=== PATIENT | female | born 1980 | race Caucasian/White ===

== ENCOUNTER 2016-08-23 03:08 | Inpatient (IN) | payer BC ==
[2016-08-23] MEDS ORDERED: Sodium Chloride 0.9% 10 ML Syringe FLUSH PRN (05:05)
[2016-08-23] MEDS ORDERED: Oxytocin/Lactated Ringers 10 UNIT/1,000 ML BAG IV SCH ×3 (05:15→19:45)
[2016-08-23] MEDS ORDERED: Bupivacaine/fentaNYL/NS 100 ML Bag EPIDUR SCH (06:00)
[2016-08-23] MEDS ORDERED: fentaNYL 100 MCG/2 ML SDV EPIDUR PRN (06:00)
[2016-08-23] MEDS ORDERED: ePHEDrine 50 MG/ML SDV IVPUSH PRN (06:00)
[2016-08-23] MEDS ORDERED: Ondansetron 4 MG/2 ML SDV IVPUSH PRN (06:00)
--- NOTE | 2016-08-23 06:07 | PCM.PREANE ---
Preanesthetic Assessment - Anesthesia/Transfusion/Family Hx Anesthesia History: Prior Anesthesia Without Reaction Family History of Anesthesia Reaction: No Transfusion History: No Prior Transfusion(s) Intubation History: Unknown - Review of Systems General: No Symptoms Pulmonary: No Symptoms Cardiovascular: No Symptoms Gastrointestinal: No symptoms (GERD) Neurological: Tingling (right hand fingers 3, and 4 have been tingly with ) Other: Reports: Easy Bruising - Physical Assessment NPO Status Date: 08/22/16 NPO Status Time: 18:30 Pulse: 93 O2 Sat by Pulse Oximetry: 98 Respiratory Rate: 14 Blood Pressure: 147/87 Temperature: 37.1 C Vital Signs: Last Vital Signs Temp 37.1 C 08/23/16 05:05 Pulse 93 08/23/16 05:05 Resp 14 08/23/16 05:05 BP 147/87 H 08/23/16 05:05 Pulse Ox 98 08/23/16 05:05 Height: 1.59 m Weight: 110.767 kg ASA Class: 2 Mental Status: Alert & Oriented x3 Airway Class: Mallampati = 2 Dentition: Reports: Normal Dentition, Caries Thyro-Mental Finger Breadths: 3 Mouth Opening Finger Breadths: 3 ROM/Head Extension: Full Lungs: Clear to auscultation, Normal respiratory effort Cardiovascular: Regular Rate, Regular Rhythm, No Murmurs - Lab Values: Laboratory Last Values WBC 8.61 K/mm3 (3.98-10.04) 08/23/16 04:16 RBC 3.82 M/mm3 (3.98-5.22) L 08/23/16 04:16 Hgb 9.8 gm/L (11.2-15.7) L 08/23/16 04:16 Hct 30.6 % (34.1-44.9) L 08/23/16 04:16 MCV 80.1 fl (79.4-94.8) 08/23/16 04:16 MCH 25.7 pg (25.6-32.2) 08/23/16 04:16 MCHC 32.0 g/dl (32.2-35.5) L 08/23/16 04:16 RDW Std Deviation 42.7 fL (36.4-46.3) 08/23/16 04:16 Plt Count 203 K/mm3 (182-369) 08/23/16 04:16 MPV 10.7 fl (9.4-12.3) 08/23/16 04:16 Above labs reviewed and noted. - Allergies Allergies/Adverse Reactions: Allergies Allergy/AdvReac Type Severity Reaction Status Date / Time latex Allergy Rash Verified 04/11/15 17:56 Penicillins Allergy Other Verified 04/11/15 17:56 - Anesthesia Plan Pre-Op Medication Ordered: None - Acknowledgements Anesthesia Type Planned: Epidural Pt an Appropriate Candidate for the Planned Anesthesia: Yes Alternatives and Risks of Anesthesia Discussed w Pt/Guardian: Yes Pt/Guardian Understands and Agrees with Anesthesia Plan: Yes PreAnesthesia Questionnaire - Past Health History Medical/Surgical History: Denies Medical/Surgical History - Infectious Disease History Infectious Disease History: Reports: Chicken Pox - Past Surgical History GI Surgical History: Reports: Cholecystectomy - SUBSTANCE USE Smoking Status *Q: Never Smoker Second Hand Smoke Exposure: No Recreational Drug Use History: No - CURRENT (IN HOUSE) MEDS Current Meds: Current Medications Ephedrine Sulfate (Ephedrine Sulfate) 5 mg IVPUSH ASDIRECTED PRN PRN Reason: Hypotension Fentanyl (Sublimaze) 100 mcg EPIDUR Q3H PRN PRN Reason: Pain Fentanyl/Bupivacaine HCl (Fentanyl/Bupivacaine/Ns 2 Mcg-0.125% 100 Ml) 100 ml EPIDUR ASDIRECTED ILIR Lactated Ringer's (Ringers, Lactated) 1,000 mls @ 100 mls/hr IV ASDIRECTED ILIR Oxytocin/Lactated Ringer's (Pitocin In Lr 10 Units/1,000 Ml) 10 unit in 1,000 mls @ 100 mls/hr IV TITRATE ILIR PRN Reason: Protocol Oxytocin/Lactated Ringer's (Pitocin In Lr 10 Units/1,000 Ml) 10 unit in 1,000 mls @ 12 mls/hr IV TITRATE ILIR; 2 MUNITS/MIN PRN Reason: Protocol Ondansetron HCl (Zofran) 4 mg IVPUSH ONETIME PRN PRN Reason: Nausea/Vomiting Sodium Chloride (Saline Flush) 10 ml FLUSH ASDIRECTED PRN PRN Reason: Keep Vein Open
[2016-08-23] MEDS: Lactated Ringers 1,000 ML IV SCH ×5 (06:09→11:12)
--- NOTE | 2016-08-23 07:26 | PCM.LDHP ---
L&D History of Present Illness - General Date of Service: 08/23/16 Admit Problem/Dx: Patient Status Order with Admit Dx/Problem 08/23/16 05:05 Patient Status [ADT] Routine Admission Diagnosis/Problem Admission Diagnosis/Problem - planned Source of Information: Patient History Limitations: Reports: No Limitations - History of Present Illness Introduction:: Patient is a 36 y/o at 41 0/7 wks presented this AM with SROM. This occurred at about 0300. Only having intermittent contractions. otherwise uncomplicated. 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: : 2 Para: 1 LMP (Approximate): - Past Surgical History GI Surgical History: Reports: Cholecystectomy Social & Family History - Family History Family Medical History: Noncontributory - Tobacco Use Smoking Status *Q: Never Smoker Second Hand Smoke Exposure: No - Caffeine Use Caffeine Use: Reports: None - Alcohol Use Alcohol Use History: No - Recreational Drug Use Recreational Drug Use: No - Living Situation & Occupation Living situation: Reports: , with Family Occupation: Employed H&P Review of Systems - Review of Systems: Review Of Systems: See Below General: Reports: No Symptoms Pulmonary: Reports: No Symptoms Cardiovascular: Reports: No Symptoms Gastrointestinal: Reports: Abdominal Pain (contractions) Genitourinary: Reports: No Symptoms Musculoskeletal: Reports: No Symptoms L&D Exam - Exam Exam: See Below - Vital Signs Vital Signs: Last Vital Signs Temp 37.1 C 08/23/16 06:16 Pulse 93 08/23/16 06:16 Resp 14 08/23/16 06:16 BP 147/87 H 08/23/16 06:16 Pulse Ox 98 08/23/16 06:16 Weight: 110.767 kg - OB Specific Contraction Intensity: Moderate Movement: Active Heart Tones: Present Heart Tones per Min: 130 Heart Rate (FHR) Variability: Moderate (6-25 bmp) Presentation: Vertex - Zimmerman Score Zimmerman Score Dilation: 1-2 cm (Per nursing) - Exam General: Alert, Oriented, Cooperative Lungs: Clear to Auscultation Cardiovascular: Regular Rate, Regular Rhythm Abdomen: Soft Genitourinary: Normal external exam Extremities: Edema Skin: Warm, Dry, Intact - Patient Data Lab Results Last 24 hrs: Laboratory Results - last 24 hr 08/23/16 08/23/16 Range/Units 04:16 06:18 WBC 8.61 (3.98-10.04) K/mm3 RBC 3.82 L (3.98-5.22) M/mm3 Hgb 9.8 L (11.2-15.7) gm/L Hct 30.6 L (34.1-44.9) % MCV 80.1 (79.4-94.8) fl MCH 25.7 (25.6-32.2) pg MCHC 32.0 L (32.2-35.5) g/dl RDW Std Deviation 42.7 (36.4-46.3) fL Plt Count 203 (182-369) K/mm3 MPV 10.7 (9.4-12.3) fl AST 13 L (15-37) U/L ALT 13 L (14-59) U/L Result Diagrams: 08/23/16 04:16 08/23/16 06:18 - Problem List (1) 41 weeks gestation of SNOMED Code(s): 78287843 ICD Code: Z3A.41 - 41 WEEKS GESTATION OF Status: Acute Current Visit: Yes (2) SROM (spontaneous rupture of membranes) SNOMED Code(s): 534518540 ICD Code: [id number] - Status: Acute Current Visit: Yes (3) Meconium in amniotic fluid affecting management of mother in third trimester SNOMED Code(s): 25358015, 68068022 ICD Code: O36.8930 - MATERNAL CARE FOR OTH PROBLEMS, THIRD TRIMESTER, UNSP Status: Acute Current Visit: Yes Qualifiers: Fetus number: single or unspecified fetus Qualified Code(s): O36.8930 - Maternal care for other specified problems, third trimester, not applicable or unspecified (4) Rh negative state in antepartum period SNOMED Code(s): 733908166, 482816424 ICD Code: O09.899 - SUPERVISION OF OTHER HIGH RISK PREGNANCIES, UNSP TRIMESTER Status: Acute Current Visit: Yes Qualifiers: Trimester: third trimester Qualified Code(s): O09.893 - Supervision of other high risk pregnancies, third trimester Problem List Initiated/Reviewed/Updated: Yes Orders Last 24hrs: Active Orders 24 hr Category Date Time Status Patient Status [ADT] Routine ADT 08/23/16 05:05 Active Activity as Tolerated [RC] PFP Care 08/23/16 05:05 Active Communication Order [RC] ASDIRECTED Care 08/23/16 05:05 Active Communication Order [RC] ASDIRECTED Care 08/23/16 05:05 Active Communication Order [RC] ASDIRECTED Care 08/23/16 05:05 Active Communication Order [RC] ASDIRECTED Care 08/23/16 05:05 Active Heart Tones [RC] ASDIRECTED Care 08/23/16 05:06 Active Monitoring [RC] INTERMITTENT Care 08/23/16 05:05 Active Notify Provider [RC] ASDIRECTED Care 08/23/16 05:05 Active Notify Provider [RC] ASDIRECTED Care 08/23/16 06:00 Active Notify Provider [RC] PFP Care 08/23/16 05:05 Active Notify Provider [RC] PRN Care 08/23/16 05:05 Active Oxygen Therapy [RC] ASDIRECTED Care 08/23/16 06:00 Active Peripheral IV Care [RC] . DIRECTED Care 08/23/16 05:06 Active Pulse Oximetry [RC] ASDIRECTED Care 08/23/16 06:00 Active Up ad Rubia [RC] ASDIRECTED Care 08/23/16 05:09 Active Vaginal Exam [RC] ASDIRECTED Care 08/23/16 05:05 Active Vital Signs [RC] ASDIRECTED Care 08/23/16 05:05 Active Regular Diet [DIET] Diet 08/23/16 Breakfast Active CREATININE W/GFR [CHEM] Routine Lab 08/23/16 06:18 Received TYPE AND SCREEN [BBK] Routine Lab 08/23/16 04:16 Received UA W/O MICROSCOPIC [URIN] Routine Lab 08/23/16 05:49 Received Bupivacaine/fentaNYL/NS [fentaNYL/Bupivacaine/NS 2 MCG- Med 08/23/16 06:00 Active 0.125% 100 ML] 100 ml EPIDUR ASDIRECTED Lactated Ringers [Ringers, Lactated] 1,000 ml Med 08/23/16 05:15 Active IV ASDIRECTED Ondansetron [Zofran] Med 08/23/16 06:00 Active 4 mg IVPUSH ONETIME PRN Oxytocin/Lactated Ringers [Pitocin in LR 10 Units/1,000 Med 08/23/16 05:15 Active ML] 10 unit in 1,000 ml IV TITRATE Oxytocin/Lactated Ringers [Pitocin in LR 10 Units/1,000 Med 08/23/16 05:15 Active ML] 10 unit in 1,000 ml IV TITRATE Sodium Chloride 0.9% [Saline Flush] Med 08/23/16 05:05 Active 10 ml FLUSH ASDIRECTED PRN ePHEDrine [ePHEDrine Sulfate] Med 08/23/16 06:00 Active 5 mg IVPUSH ASDIRECTED PRN fentaNYL [Sublimaze] Med 08/23/16 06:00 Active 100 mcg EPIDUR Q3H PRN Electronic Heart Tones Ext w TOCO [WOMSER] Oth 08/23/16 05:05 Ordered Routine Electronic Heart Tones Internal [WOMSER] Per Unit Oth 08/23/16 05:05 Ordered Routine Peripheral IV Insertion Adult [OM.PC] Routine Oth 08/23/16 05:05 Ordered Resuscitation Status Routine Resus Stat 08/23/16 05:05 Ordered Medication Orders Ephedrine Sulfate (Ephedrine Sulfate) 5 mg IVPUSH ASDIRECTED PRN PRN Reason: Hypotension Fentanyl (Sublimaze) 100 mcg EPIDUR Q3H PRN PRN Reason: Pain Fentanyl/Bupivacaine HCl (Fentanyl/Bupivacaine/Ns 2 Mcg-0.125% 100 Ml) 100 ml EPIDUR ASDIRECTED ILIR Lactated Ringer's (Ringers, Lactated) 1,000 mls @ 100 mls/hr IV ASDIRECTED ILIR Last Admin: 08/23/16 06:56 Dose: 100 mls/hr Infusion: 08/23/16 06:56 Dose: 100 mls/hr Admin: 08/23/16 06:09 Dose: 100 mls/hr Oxytocin/Lactated Ringer's (Pitocin In Lr 10 Units/1,000 Ml) 10 unit in 1,000 mls @ 100 mls/hr IV TITRATE ILIR PRN Reason: Protocol Oxytocin/Lactated Ringer's (Pitocin In Lr 10 Units/1,000 Ml) 10 unit in 1,000 mls @ 12 mls/hr IV TITRATE ILIR; 2 MUNITS/MIN PRN Reason: Protocol Last Titration: 08/23/16 07:13 Dose: 4 munits/min, 24 mls/hr Admin: 08/23/16 06:10 Dose: 2 munits/min, 12 mls/hr Ondansetron HCl (Zofran) 4 mg IVPUSH ONETIME PRN PRN Reason: Nausea/Vomiting Sodium Chloride (Saline Flush) 10 ml FLUSH ASDIRECTED PRN PRN Reason: Keep Vein Open Assessment/Plan Comment:: 36 y/o at 41 0/7 wks presents with ROM * Pitocin started several hours after admission due to contractions only every 7 minutes * GBS negative, no need for antibiotics * Patient with a few elevated BP's. Labs ordered along with UA. * Pain management per patient preference
--- NOTE | 2016-08-23 07:40 | PCM.PNLD ---
Labor Progress Note - VS & Meds Vital Signs: Last Vital Signs Temp 37.1 C 08/23/16 06:16 Pulse 93 08/23/16 06:16 Resp 14 08/23/16 06:16 BP 147/87 H 08/23/16 06:16 Pulse Ox 98 08/23/16 06:16 Active Medications: Current Medications Ephedrine Sulfate (Ephedrine Sulfate) 5 mg IVPUSH ASDIRECTED PRN PRN Reason: Hypotension Fentanyl (Sublimaze) 100 mcg EPIDUR Q3H PRN PRN Reason: Pain Fentanyl/Bupivacaine HCl (Fentanyl/Bupivacaine/Ns 2 Mcg-0.125% 100 Ml) 100 ml EPIDUR ASDIRECTED ILIR Lactated Ringer's (Ringers, Lactated) 1,000 mls @ 100 mls/hr IV ASDIRECTED ILIR Last Admin: 08/23/16 06:56 Dose: 100 mls/hr Oxytocin/Lactated Ringer's (Pitocin In Lr 10 Units/1,000 Ml) 10 unit in 1,000 mls @ 100 mls/hr IV TITRATE ILIR PRN Reason: Protocol Oxytocin/Lactated Ringer's (Pitocin In Lr 10 Units/1,000 Ml) 10 unit in 1,000 mls @ 12 mls/hr IV TITRATE ILIR; 2 MUNITS/MIN PRN Reason: Protocol Last Titration: 08/23/16 07:30 Dose: 2 munits/min, 12 mls/hr Ondansetron HCl (Zofran) 4 mg IVPUSH ONETIME PRN PRN Reason: Nausea/Vomiting Sodium Chloride (Saline Flush) 10 ml FLUSH ASDIRECTED PRN PRN Reason: Keep Vein Open - Uterine Contractions Uterine Monitoring Mode: External [place] Contraction Intensity: Strong - Monitoring Monitor Mode: External Ultrasound Heart Rate (FHR) Baseline: 130 Heart Rate (FHR) Variability: Moderate (6-25 bmp) Accelerations: Present, 15x15 Decelerations: None Strip Review: Category I - Vaginal Exam Dilation (cm): 4 Effacement (Percent): 100 Station: -2 Cervical Position: Anterior Vaginal Exam Comment: BBOW felt - Labor Progress (Free Text) Labor Progress: Patient on 4 of pitocin. Decreased to 2 so that patient can get an epidural. Anticipate
--- NOTE | 2016-08-23 11:33 | PCM.PNLD ---
Labor Progress Note - VS & Meds Vital Signs: Last Vital Signs Temp 37.1 C 08/23/16 06:16 Pulse 93 08/23/16 06:16 Resp 14 08/23/16 06:16 BP 147/87 H 08/23/16 06:16 Pulse Ox 98 08/23/16 06:16 Active Medications: Current Medications Ephedrine Sulfate (Ephedrine Sulfate) 5 mg IVPUSH ASDIRECTED PRN PRN Reason: Hypotension Fentanyl (Sublimaze) 100 mcg EPIDUR Q3H PRN PRN Reason: Pain Last Admin: 08/23/16 08:29 Dose: 100 mcg Fentanyl/Bupivacaine HCl (Fentanyl/Bupivacaine/Ns 2 Mcg-0.125% 100 Ml) 100 ml EPIDUR ASDIRECTED ILIR Last Admin: 08/23/16 08:30 Dose: 100 ml Lactated Ringer's (Ringers, Lactated) 1,000 mls @ 100 mls/hr IV ASDIRECTED ILIR Last Admin: 08/23/16 11:12 Dose: 100 mls/hr Oxytocin/Lactated Ringer's (Pitocin In Lr 10 Units/1,000 Ml) 10 unit in 1,000 mls @ 100 mls/hr IV TITRATE ILIR PRN Reason: Protocol Oxytocin/Lactated Ringer's (Pitocin In Lr 10 Units/1,000 Ml) 10 unit in 1,000 mls @ 12 mls/hr IV TITRATE ILIR; 2 MUNITS/MIN PRN Reason: Protocol Last Titration: 08/23/16 10:40 Dose: 8 munits/min, 48 mls/hr Ondansetron HCl (Zofran) 4 mg IVPUSH ONETIME PRN PRN Reason: Nausea/Vomiting Sodium Chloride (Saline Flush) 10 ml FLUSH ASDIRECTED PRN PRN Reason: Keep Vein Open - Uterine Contractions Uterine Monitoring Mode: External [place] Contraction Intensity: Moderate to Strong - Monitoring Monitor Mode: External Ultrasound Heart Rate (FHR) Baseline: 130 Heart Rate (FHR) Variability: Moderate (6-25 bmp) Accelerations: Present, 15x15 Decelerations: Late (Run of late decelerations resolved with position change) Strip Review: Category I - Vaginal Exam Dilation (cm): 5 Effacement (Percent): 100 Station: -2 Cervical Position: Anterior - Labor Progress (Free Text) Labor Progress: Patient comfortable with epidural. Rupture of forebag performed with moderate amount of meconium stained fluid noted. Continue pitocin per protocol. Currently at 8
--- NOTE | 2016-08-23 13:53 | PCM.PNLD ---
Labor Progress Note - VS & Meds Vital Signs: Last Vital Signs Temp 37.1 C 08/23/16 06:16 Pulse 93 08/23/16 06:16 Resp 14 08/23/16 06:16 BP 147/87 H 08/23/16 06:16 Pulse Ox 98 08/23/16 06:16 Active Medications: Current Medications Ephedrine Sulfate (Ephedrine Sulfate) 5 mg IVPUSH ASDIRECTED PRN PRN Reason: Hypotension Fentanyl (Sublimaze) 100 mcg EPIDUR Q3H PRN PRN Reason: Pain Last Admin: 08/23/16 08:29 Dose: 100 mcg Fentanyl/Bupivacaine HCl (Fentanyl/Bupivacaine/Ns 2 Mcg-0.125% 100 Ml) 100 ml EPIDUR ASDIRECTED ILIR Last Admin: 08/23/16 08:30 Dose: 100 ml Lactated Ringer's (Ringers, Lactated) 1,000 mls @ 100 mls/hr IV ASDIRECTED ILIR Last Admin: 08/23/16 11:12 Dose: 100 mls/hr Oxytocin/Lactated Ringer's (Pitocin In Lr 10 Units/1,000 Ml) 10 unit in 1,000 mls @ 100 mls/hr IV TITRATE ILIR PRN Reason: Protocol Oxytocin/Lactated Ringer's (Pitocin In Lr 10 Units/1,000 Ml) 10 unit in 1,000 mls @ 12 mls/hr IV TITRATE ILIR; 2 MUNITS/MIN PRN Reason: Protocol Last Titration: 08/23/16 13:28 Dose: 9 munits/min, 54 mls/hr Ondansetron HCl (Zofran) 4 mg IVPUSH ONETIME PRN PRN Reason: Nausea/Vomiting Sodium Chloride (Saline Flush) 10 ml FLUSH ASDIRECTED PRN PRN Reason: Keep Vein Open - Uterine Contractions Uterine Monitoring Mode: External [place] Contraction Intensity: Moderate to Strong - Monitoring Monitor Mode: External Ultrasound Heart Rate (FHR) Baseline: 130 Heart Rate (FHR) Variability: Moderate (6-25 bmp) Accelerations: Present, 15x15 Decelerations: Early Strip Review: Category I - Vaginal Exam Dilation (cm): 7-8 Effacement (Percent): 100 Station: -2 Cervical Position: Anterior - Labor Progress (Free Text) Labor Progress: Patient checked about 1 hour ago and 7-8 cm. Still same dilation. IUPC placed to help better titrate pitocin. Continue present management. Reassess in a few hours
--- NOTE | 2016-08-23 15:17 | PCM.PNLD ---
Labor Progress Note - VS & Meds Vital Signs: Last Vital Signs Temp 37.1 C 08/23/16 06:16 Pulse 93 08/23/16 06:16 Resp 14 08/23/16 06:16 BP 147/87 H 08/23/16 06:16 Pulse Ox 98 08/23/16 06:16 Active Medications: Current Medications Ephedrine Sulfate (Ephedrine Sulfate) 5 mg IVPUSH ASDIRECTED PRN PRN Reason: Hypotension Fentanyl (Sublimaze) 100 mcg EPIDUR Q3H PRN PRN Reason: Pain Last Admin: 08/23/16 08:29 Dose: 100 mcg Fentanyl/Bupivacaine HCl (Fentanyl/Bupivacaine/Ns 2 Mcg-0.125% 100 Ml) 100 ml EPIDUR ASDIRECTED ILIR Last Admin: 08/23/16 08:30 Dose: 100 ml Lactated Ringer's (Ringers, Lactated) 1,000 mls @ 100 mls/hr IV ASDIRECTED ILIR Last Admin: 08/23/16 11:12 Dose: 100 mls/hr Oxytocin/Lactated Ringer's (Pitocin In Lr 10 Units/1,000 Ml) 10 unit in 1,000 mls @ 100 mls/hr IV TITRATE ILIR PRN Reason: Protocol Oxytocin/Lactated Ringer's (Pitocin In Lr 10 Units/1,000 Ml) 10 unit in 1,000 mls @ 12 mls/hr IV TITRATE ILIR; 2 MUNITS/MIN PRN Reason: Protocol Last Titration: 08/23/16 13:56 Dose: 11 munits/min, 66 mls/hr Ondansetron HCl (Zofran) 4 mg IVPUSH ONETIME PRN PRN Reason: Nausea/Vomiting Sodium Chloride (Saline Flush) 10 ml FLUSH ASDIRECTED PRN PRN Reason: Keep Vein Open - Uterine Contractions Uterine Monitoring Mode: External [place] Contraction Intensity: Moderate to Strong - Monitoring Monitor Mode: External Ultrasound Heart Rate (FHR) Baseline: 135 Heart Rate (FHR) Variability: Moderate (6-25 bmp) Accelerations: Present, 15x15 Decelerations: Early, Variable Strip Review: Category I - Vaginal Exam Dilation (cm): 9 Effacement (Percent): 100 Station: -2 Cervical Position: Anterior - Labor Progress (Free Text) Labor Progress: Patient feeling comfortable with epidural. Legs are very heavy. No sensation. Is 9 cm with molding noted. Will try to turn down epidural to give patient some sensation. Reassess in another 1-2 hours. Pitocin at 11, continue per protocol Pratima Najera MD
--- NOTE | 2016-08-23 16:45 | PCM.PNLD ---
Labor Progress Note - VS & Meds Vital Signs: Last Vital Signs Temp 37.1 C 08/23/16 06:16 Pulse 93 08/23/16 06:16 Resp 14 08/23/16 06:16 BP 147/87 H 08/23/16 06:16 Pulse Ox 98 08/23/16 06:16 Active Medications: Current Medications Ephedrine Sulfate (Ephedrine Sulfate) 5 mg IVPUSH ASDIRECTED PRN PRN Reason: Hypotension Fentanyl (Sublimaze) 100 mcg EPIDUR Q3H PRN PRN Reason: Pain Last Admin: 08/23/16 08:29 Dose: 100 mcg Fentanyl/Bupivacaine HCl (Fentanyl/Bupivacaine/Ns 2 Mcg-0.125% 100 Ml) 100 ml EPIDUR ASDIRECTED ILIR Last Admin: 08/23/16 08:30 Dose: 100 ml Lactated Ringer's (Ringers, Lactated) 1,000 mls @ 100 mls/hr IV ASDIRECTED ILIR Last Admin: 08/23/16 11:12 Dose: 100 mls/hr Oxytocin/Lactated Ringer's (Pitocin In Lr 10 Units/1,000 Ml) 10 unit in 1,000 mls @ 100 mls/hr IV TITRATE ILIR PRN Reason: Protocol Oxytocin/Lactated Ringer's (Pitocin In Lr 10 Units/1,000 Ml) 10 unit in 1,000 mls @ 12 mls/hr IV TITRATE ILIR; 2 MUNITS/MIN PRN Reason: Protocol Last Titration: 08/23/16 16:36 Dose: 12 munits/min, 72 mls/hr Ondansetron HCl (Zofran) 4 mg IVPUSH ONETIME PRN PRN Reason: Nausea/Vomiting Sodium Chloride (Saline Flush) 10 ml FLUSH ASDIRECTED PRN PRN Reason: Keep Vein Open - Uterine Contractions Uterine Monitoring Mode: IUPC Contraction Intensity: Moderate to Strong - Monitoring Monitor Mode: External Ultrasound Heart Rate (FHR) Baseline: 140 Heart Rate (FHR) Variability: Moderate (6-25 bmp) Accelerations: Present, 15x15 Decelerations: Early, Late (Rare) Strip Review: Category II - Vaginal Exam Dilation (cm): Rim Effacement (Percent): 100 Station: -2 Cervical Position: Anterior - Labor Progress (Free Text) Labor Progress: Molding/caput again noted of head. Attempted to assess position of baby but difficult given this molding and also because of station. Able to pushing patient's cervix to complete dilation, but head not resting on cervix otherwise. Discussed with patient her abnormal labor curve (was 7-8 cm at 1200 and now at 1700 still only 9 cm) and findings on exam. Will attempt to increase pitocin and perform position change. If no cervical change in the next 45 minutes would recommending moving to a . She and her family express an understanding of this plan.
--- NOTE | 2016-08-23 19:19 | PCM.DEL ---
L & D Note - General Info Date of Service: 08/23/16 - Delivery Note Labor: augmented by oxytocin Delivery Outcome: Livebirth Delivery Method: Spontaneous Vaginal Delivery Infant Delivery Mode: Spontaneous Presentation: Right Occiput Anterior (YENI) (compound presentation wiht posterior hand) Nuchal Cord: None Anesthesia Type: Epidural Amniotic Fluid Description: Meconium stained Episiotomy Type: None Laceration: 2nd degree, perineal Suture type: vicryl Suture size: 2-0 Placenta: intact, spontaneous Cord: 3 vessels Estimated Blood Loss: 300 Resuscitation Needed: Yes : Bulb Syringe, Stimulated, Warmed, [place] Used, Warmer Used Delivery Comments (Free Text/Narrative):: Patient found to be complete and began pushing. With maternal pushing effort head delivered from an YENI presentation. Compound presentation noted with posterior hand next to face. This was grasped and gently delivered. Following this gentle downward traction was placed on the head with resulting delivery of the shoulders and body. Cord clamped and cut. Baby handed to awaiting Legislative Director. Cord blood obtained. Placenta allowed time to separate and then spontaneously expelled. Inspection of the perineum showed a 2nd degree laceration which was repaired with a 20 vicryl in the typical fashion. - Patient Data Vitals - most recent: Last Vital Signs Temp 37.1 C 08/23/16 06:16 Pulse 93 08/23/16 06:16 Resp 14 08/23/16 06:16 BP 147/87 H 08/23/16 06:16 Pulse Ox 98 08/23/16 06:16 Weight - most recent: 110.767 kg I&O - last 24 hours: Intake & Output 08/23/16 08/23/16 08/23/16 06:59 14:59 22:59 Intake Total 4000 300 Balance 4000 300 Lab Results last 24 hrs: Laboratory Results - last 24 hr 08/23/16 08/23/16 08/23/16 Range/Units 04:16 04:16 05:49 WBC 8.61 (3.98-10.04) K/mm3 RBC 3.82 L (3.98-5.22) M/mm3 Hgb 9.8 L (11.2-15.7) gm/L Hct 30.6 L (34.1-44.9) % MCV 80.1 (79.4-94.8) fl MCH 25.7 (25.6-32.2) pg MCHC 32.0 L (32.2-35.5) g/dl RDW Std Deviation 42.7 (36.4-46.3) fL Plt Count 203 (182-369) K/mm3 MPV 10.7 (9.4-12.3) fl Creatinine (0.55-1.02) mg/dL Est Cr Clr Drug Dosing mL/min Estimated GFR (MDRD) (>60) mL/min AST (15-37) U/L ALT (14-59) U/L Urine Color Dark yellow (Yellow) Urine Appearance Cloudy H (Clear) Urine pH 6.5 (5.0-8.0) Ur Specific [place] 1.020 (1.005-1.030) Urine Protein 3+ H (Negative) Urine Glucose (UA) Negative (Negative) Urine Ketones Negative (Negative) Urine Occult Blood 3+ H (Negative) Urine Nitrite Negative (Negative) Urine Bilirubin 1+ H (Negative) Urine Urobilinogen 0.2 (0.2-1.0) Ur Leukocyte Esterase Trace H (Negative) Blood Type O NEGATIVE Gel Antibody Screen Negative 08/23/16 08/23/16 Range/Units 06:18 06:18 WBC (3.98-10.04) K/mm3 RBC (3.98-5.22) M/mm3 Hgb (11.2-15.7) gm/L Hct (34.1-44.9) % MCV (79.4-94.8) fl MCH (25.6-32.2) pg MCHC (32.2-35.5) g/dl RDW Std Deviation (36.4-46.3) fL Plt Count (182-369) K/mm3 MPV (9.4-12.3) fl Creatinine 0.7 (0.55-1.02) mg/dL Est Cr Clr Drug Dosing 89.89 mL/min Estimated GFR (MDRD) > 60 (>60) mL/min AST 13 L (15-37) U/L ALT 13 L (14-59) U/L Urine Color (Yellow) Urine Appearance (Clear) Urine pH (5.0-8.0) Ur Specific [place] (1.005-1.030) Urine Protein (Negative) Urine Glucose (UA) (Negative) Urine Ketones (Negative) Urine Occult Blood (Negative) Urine Nitrite (Negative) Urine Bilirubin (Negative) Urine Urobilinogen (0.2-1.0) Ur Leukocyte Esterase (Negative) Blood Type Gel Antibody Screen Med Orders - Current: Current Medications Ephedrine Sulfate (Ephedrine Sulfate) 5 mg IVPUSH ASDIRECTED PRN PRN Reason: Hypotension Fentanyl (Sublimaze) 100 mcg EPIDUR Q3H PRN PRN Reason: Pain Last Admin: 08/23/16 08:29 Dose: 100 mcg Fentanyl/Bupivacaine HCl (Fentanyl/Bupivacaine/Ns 2 Mcg-0.125% 100 Ml) 100 ml EPIDUR ASDIRECTED ILIR Last Admin: 08/23/16 08:30 Dose: 100 ml Lactated Ringer's (Ringers, Lactated) 1,000 mls @ 100 mls/hr IV ASDIRECTED ILIR Last Admin: 08/23/16 11:12 Dose: 100 mls/hr Oxytocin/Lactated Ringer's (Pitocin In Lr 10 Units/1,000 Ml) 10 unit in 1,000 mls @ 100 mls/hr IV TITRATE ILIR PRN Reason: Protocol Oxytocin/Lactated Ringer's (Pitocin In Lr 10 Units/1,000 Ml) 10 unit in 1,000 mls @ 12 mls/hr IV TITRATE ILIR; 2 MUNITS/MIN PRN Reason: Protocol Last Titration: 08/23/16 16:55 Dose: 13 munits/min, 78 mls/hr Ondansetron HCl (Zofran) 4 mg IVPUSH ONETIME PRN PRN Reason: Nausea/Vomiting Sodium Chloride (Saline Flush) 10 ml FLUSH ASDIRECTED PRN PRN Reason: Keep Vein Open - Problem List & Annotations (1) 41 weeks gestation of SNOMED Code(s): 47994011 Code(s): Z3A.41 - 41 WEEKS GESTATION OF Status: Acute Current Visit: Yes (2) SROM (spontaneous rupture of membranes) SNOMED Code(s): 831577610 Code(s): RVX4067 - Status: Acute Current Visit: Yes (3) Meconium in amniotic fluid affecting management of mother in third trimester SNOMED Code(s): 58360505, 34252127 Code(s): O36.8930 - MATERNAL CARE FOR OTH PROBLEMS, THIRD TRIMESTER, UNSP Status: Acute Current Visit: Yes Qualifiers: Fetus number: single or unspecified fetus Qualified Code(s): O36.8930 - Maternal care for other specified problems, third trimester, not applicable or unspecified (4) Rh negative state in antepartum period SNOMED Code(s): 618523047, 178143052 Code(s): O09.899 - SUPERVISION OF OTHER HIGH RISK PREGNANCIES, UNSP TRIMESTER Status: Acute Current Visit: Yes Qualifiers: Trimester: third trimester Qualified Code(s): O09.893 - Supervision of other high risk pregnancies, third trimester (5) Elevated blood pressure affecting in third trimester, antepartum SNOMED Code(s): 83748923, 50472802, 448527506 Code(s): O13.3 - GESTATIONAL HTN W/O SIGNIFICANT PROTEINURIA, THIRD TRIMESTER Status: Acute Current Visit: Yes - Problem List Review Problem List Initiated/Reviewed/Updated: Yes - My Orders Last 24 Hours: My Active Orders 08/23/16 05:05 Patient Status [ADT] Routine Activity as Tolerated [RC] PFP Communication Order [RC] ASDIRECTED Communication Order [RC] ASDIRECTED Communication Order [RC] ASDIRECTED Communication Order [RC] ASDIRECTED Monitoring [RC] INTERMITTENT Notify Provider [RC] ASDIRECTED Notify Provider [RC] PFP Notify Provider [RC] PRN Vital Signs [RC] ASDIRECTED Sodium Chloride 0.9% [Saline Flush] 10 ml FLUSH ASDIRECTED PRN Electronic Heart Tones Ext w TOCO [WOMSER] Routine Electronic Heart Tones Internal [WOMSER] Per Unit Routine Peripheral IV Insertion Adult [OM.PC] Routine Resuscitation Status Routine 08/23/16 05:06 Heart Tones [RC] ASDIRECTED Peripheral IV Care [RC] . DIRECTED 08/23/16 05:09 Up ad Rubia [RC] ASDIRECTED 08/23/16 05:15 Lactated Ringers [Ringers, Lactated] 1,000 ml IV ASDIRECTED Oxytocin/Lactated Ringers [Pitocin in LR 10 Units/1,000 ML] 10 unit in 1,000 ml IV TITRATE Oxytocin/Lactated Ringers [Pitocin in LR 10 Units/1,000 ML] 10 unit in 1,000 ml IV TITRATE 08/23/16 19:15 Patient Status Manage Transfer [TRANSFER] Routine 08/23/16 Breakfast Regular Diet [DIET] - Assessment Assessment:: G2 now P2002 PPD#0 from at 41 0/7 wks - Plan Plan:: * Routine cares * Encourage breast feeding * Rh negative, will assess blood type to see if Rhogam required * Discharge home in 1-2 days Elevated BP's * Labs done on admission and normal. Continue to assess post delivery
[2016-08-23] MEDS ORDERED: Witch Hazel Medicated Pads 100/Jar TOP PRN (19:21)
[2016-08-23] MEDS ORDERED: Docusate Sodium 100 MG Cap PO PRN (19:21)
[2016-08-23] MEDS ORDERED: Acetaminophen 325 MG Tab PO PRN (19:21)
[2016-08-23] MEDS ORDERED: Lanolin 100% Cream 7 GM Tube TOP PRN (19:21)
[2016-08-23] MEDS ORDERED: Benzocaine/Menthol 20%-0.5% Spray 56 GM Canister TOP PRN (19:21)
[2016-08-23] MEDS ORDERED: Bupivacaine 0.25% 10 ML SDV ONE (19:21)
[2016-08-23] MEDS: Ibuprofen 600 MG Tab PO PRN (20:30)
[2016-08-24] MEDS: Ibuprofen 600 MG Tab PO PRN (05:25)
--- NOTE | 2016-08-24 08:10 | PCM48HPAN ---
Post Anesthesia Note - EVALUATION WITHIN 48HRS OF ANESTHETIC Vital Signs in Normal Range: Yes Patient Participated in Evaluation: Yes Respiratory Function Stable: Yes Airway Patent: Yes Cardiovascular Function Stable: Yes Hydration Status Stable: Yes Pain Control Satisfactory: Yes Nausea and Vomiting Control Satisfactory: Yes Mental Status Recovered: Yes
[2016-08-24 08:12] VITALS: BP 124/65
--- NOTE | 2016-08-24 09:14 | PCM.DCSUM1 ---
Discharge Summary - Hospital Course Free Text/Narrative:: Doris is a 36-year-old 2 now para 2002 white female who came in with spontaneous labor. She was augmented with oxytocin and had a spontaneous vaginal delivery on the evening of 08/23/2016. Baby was a viable sutton with Apgars of 8 and 9. The baby delivered in an YENI presentation. Posterior hand was next to the face. Sent to deliver spontaneously. Patient has second-degree perineal laceration which was closed with 2-0 Vicryl in a typical fashion. patient is nursing. This is not going very well at this time. Patient is somewhat frustrated with this. She is voiding well however and is ambulating without concerns. She is desiring discharge home. - Discharge Data Discharge Date: 08/24/16 Discharge Disposition: DC/[facility]fer to [facility]/[place] [facility] Condition: Good - Patient Instructions Diet: Regular Diet as Tolerated (Nursing diet was increased calcium and calories is recommended.) Activity: As Tolerated (No intercourse or tampons until bleeding resolves) Driving: Do Not Drive (2 days) Showering/Bathing: May Shower (Or take a bath) Notify Provider of: Fever, Increased Pain, Nausea and/or Vomiting - Discharge Plan Home Medications: Home Meds Ibuprofen [IJD: Ibuprofen] 600 mg PO Q6H PRN #30 tablet 08/24/16 [Rx] Referrals: Chetna Wilson MD [Primary Care Provider] - (Return to clinic6 weeks -) - Discharge Summary/Plan Comment DC Time >30 min.: No Discharge Summary/Plan Comment: Discharge instructions: 1. Discharge home 2. Regular, high fiber, nursing diet was increased calcium and calories as directed. 3. Precautions given concern increased pain, bleeding, temperature, signs/ symptoms of DVT/PE 4. Medications per medication was printed, discussed with and given to the patient. 5. [facility] Diagnosis: Term -delivered Condition: Good - Patient Data Vitals - Most Recent: Last Vital Signs Temp 36.7 C 08/24/16 08:00 Pulse 91 08/24/16 08:00 Resp 15 08/24/16 08:00 BP 124/65 08/24/16 08:00 Pulse Ox 97 08/24/16 08:00 Weight - Most Recent: 110.767 kg I&O - Last 24 hours: Intake & Output 08/23/16 08/24/16 08/24/16 22:59 06:59 14:59 Intake Total 300 1 Output Total 300 Balance 0 1 Lab Results - Last 24 hrs: Laboratory Results - last 24 hr 08/23/16 08/23/16 Range/Units 04:16 23:09 Blood Type O NEGATIVE O NEGATIVE Gel Antibody Screen Negative Negative Screen 1 ros/5 flds - neg RhIG Candidate? Yes Rhogam Indicated Yes, baby rh pos H Med Orders - Current: Current Medications Acetaminophen (Tylenol) 650 mg PO Q4H PRN PRN Reason: mild pain or fever Benzocaine/Menthol (Dermoplast Pain Relief [place]) 0 gm TOP ASDIRECTED PRN PRN Reason: Perineal Comfort Measure Last Admin: 08/23/16 20:29 Dose: 1 can Docusate Sodium (Colace) 100 mg PO BID PRN PRN Reason: Constipation Last Admin: 08/23/16 20:30 Dose: 100 mg Emollient Ointment (Lansinoh Hpa) 0 gm TOP ASDIRECTED PRN PRN Reason: Sore Nipples Last Admin: 08/23/16 20:30 Dose: 1 tube Oxytocin/Lactated Ringer's (Pitocin In Lr 10 Units/1,000 Ml) 10 unit in 1,000 mls @ 500 mls/hr IV ASDIRECTED ILIR PRN Reason: Protocol Last Admin: 08/23/16 19:45 Dose: 500 mls/hr Ibuprofen (Motrin) 600 mg PO Q6H PRN PRN Reason: Mild pain or fever Last Admin: 08/24/16 05:25 Dose: 600 mg Witch Irene (Tucks) 1 pad TOP ASDIRECTED PRN PRN Reason: Hemorrhoid pain Last Admin: 08/23/16 20:29 Dose: 1 container Discontinued Medications Ephedrine Sulfate (Ephedrine Sulfate) 5 mg IVPUSH ASDIRECTED PRN PRN Reason: Hypotension Fentanyl (Sublimaze) 100 mcg EPIDUR Q3H PRN PRN Reason: Pain Last Admin: 08/23/16 08:29 Dose: 100 mcg Fentanyl/Bupivacaine HCl (Fentanyl/Bupivacaine/Ns 2 Mcg-0.125% 100 Ml) 100 ml EPIDUR ASDIRECTED [facility] Last Admin: 08/23/16 08:30 Dose: 100 ml Lactated Ringer's (Ringers, Lactated) 1,000 mls @ 100 mls/hr IV ASDIRECTED ILIR Last Admin: 08/23/16 11:12 Dose: 100 mls/hr Oxytocin/Lactated Ringer's (Pitocin In Lr 10 Units/1,000 Ml) 10 unit in 1,000 mls @ 100 mls/hr IV TITRATE ILIR PRN Reason: Protocol Oxytocin/Lactated Ringer's (Pitocin In Lr 10 Units/1,000 Ml) 10 unit in 1,000 mls @ 12 mls/hr IV TITRATE ILIR; 2 MUNITS/MIN PRN Reason: Protocol Last Titration: 08/23/16 16:55 Dose: 13 munits/min, 78 mls/hr Ondansetron HCl (Zofran) 4 mg IVPUSH ONETIME PRN PRN Reason: Nausea/Vomiting Sodium Chloride (Saline Flush) 10 ml FLUSH ASDIRECTED PRN PRN Reason: Keep Vein Open *Q Meaningful Use (DIS) - VTE *Q VTE Criteria *Q: - Stroke *Q Stroke Criteria *Q: - AMI *Q AMI Criteria *Q:
== END 2016-08-24 19:45 | DRG 560 ==
LOC: JD.OB 03:08 → JD.OBCHECK 03:08 → JD.OB 05:05 → OBSVTOIN 18:50
PROVIDERS: ADMIT Obstetrics & Gynecology; ATTEND Obstetrics & Gynecology
PROC: 10E0XZZ Delivery of Products of Conception, External Approach (ICD-10-PCS; principal; 2016-08-23)
PROC: 0KQM0ZZ Repair Perineum Muscle, Open Approach (ICD-10-PCS; 2016-08-23)
PROC: 3E0R3CZ (ICD-10-PCS; 2016-08-23)
DX: O48.0 Post-term pregnancy (principal); O77.0 Labor and delivery complicated by meconium in amniotic fluid; O70.1 Second degree perineal laceration during delivery; O13.3 Gestational [pregnancy-induced] hypertension without significant proteinuria, third trimester; Z3A.41 41 weeks gestation of pregnancy; Z37.0 Single live birth
CPT/HCPCS: 36415; 81003; 82565; 84450; 84460; 85027; 85461; 86850; 86900; 86901; A9270-GY; J2590; J2790; J3010; J7120

== ENCOUNTER 2018-05-12 18:39 | Emergency (ER) | payer BC ==
[2018-05-12 18:54] VITALS: BP 113/67
--- NOTE | 2018-05-12 19:00 | EDM.PDOC ---
ED HPI GENERAL MEDICAL PROBLEM - General Chief Complaint: Back Pain or Injury Stated Complaint: BACK PAIN Time Seen by Provider: 05/12/18 19:00 Source of Information: Reports: Patient, RN Notes Reviewed History Limitations: Reports: No Limitations - History of Present Illness INITIAL COMMENTS - FREE TEXT/NARRATIVE: Patient presents to the ED for the evaluation of right-sided lower back pain that radiates down her leg. She states that this has been going on for around one and a half weeks now. She states that the pain started in her right lower back and eventually has worked its way down her right leg, she states this is a sharp pain that shoots down the leg and the pain terminates rated her right calf and then turns into tingling feeling into her foot. She states that she was seen at the walk-in clinic last week and she was given Flexeril and Voltaren for the pain relief, this helped initially but now is not providing much relief for her any longer. She has also been going to a chiropractor for pain management, this is not providing much relief either. She states her pain is a 10 out of 10 today. She states that it is painful to stand, walk, and uncomfortable to sit in any position. 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 She is going to be setting up primary care with Mirna Cedillo, however she is not able to get in to see her until May 30. The patient notes that she did not have any traumatic incidents that would have aggravated the low back pain, she states that she woke up one morning and it was there. Left Back Pain Score (Numeric/FACES): 10 - Related Data Allergies Allergy/AdvReac Type Severity Reaction Status Date / Time latex Allergy Rash Verified 04/11/15 17:56 Penicillins Allergy Other Verified 04/11/15 17:56 Home Meds: Home Meds Ibuprofen [IJD: Ibuprofen] 600 mg PO Q6H PRN #30 tablet 08/24/16 [Rx] Diclofenac Sodium [Voltaren] 75 mg PO BID 05/12/18 [History] Orphenadrine [Norflex] 100 mg PO BID PRN #20 tab 05/12/18 [Rx] predniSONE [Deltasone] 20 mg PO ASDIRECTED #15 tablet 05/12/18 [Rx] traMADol [Ultram] 50 mg PO Q6H PRN #28 tab 05/12/18 [Rx] Past Medical History - Past Health History Medical/Surgical History: Denies Medical/Surgical History Gastrointestinal History: Reports: GERD Other Gastrointestinal History: 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 Constitutional: Reports: No Symptoms HEENT: Reports: No Symptoms Respiratory: Reports: No Symptoms Cardiovascular: Reports: No Symptoms Endocrine: Reports: No Symptoms GI/Abdominal: Reports: No Symptoms : Reports: No Symptoms Musculoskeletal: Reports: Back Pain (Right sided low back pain), Leg Pain ( right leg pain). Denies: Muscle Stiffness Skin: Reports: No Symptoms Neurological: Reports: Numbness (in right foot), Tingling (in right foot) Psychiatric: Reports: No Symptoms Hematologic/Lymphatic: Reports: No Symptoms Immunologic: Reports: No Symptoms ED EXAM,LOWER BACK PAIN/INJURY - Physical Exam Exam: See Below Exam Limited By: No Limitations General Appearance: Alert, WD/WN, No Apparent Distress Eye Exam: Bilateral Eye: Normal Inspection Ears: Normal External Exam Nose: Normal Inspection Throat/Mouth: Normal Inspection, Normal Lips, Normal Oropharynx, Normal Voice, No Airway Compromise Head: Atraumatic, Normocephalic Neck: Normal Inspection Respiratory/Chest: No Respiratory Distress, Lungs Clear, Normal Breath Sounds, No Accessory Muscle Use, Chest Non-Tender Cardiovascular: Normal Peripheral Pulses, Regular Rate, Rhythm, No Murmur Back Exam: Normal Inspection, Full Range of Motion Extremities: Normal Inspection, Normal Range of Motion, Non-Tender, No Pedal Edema, Normal Capillary Refill Neurological: Alert, Normal Mood/Affect, Normal Dorsiflexion, Normal Plantar Flexion, Normal Gait, Normal Reflexes, No Motor/Sensory Deficits, Oriented x 3, Straight Leg Raise (R). No: Straight Leg Raise (L), Saddle Anesthesia Psychiatric: Normal Affect, Normal Mood Skin Exam: Warm, Dry, Intact, Normal Color, No Rash Course - Vital Signs Last Recorded V/S: Last Vital Signs Temp 98.3 F 05/12/18 18:52 Pulse 73 05/12/18 18:52 Resp 20 05/12/18 18:52 BP 113/67 05/12/18 18:52 Pulse Ox 97 05/12/18 18:52 - Orders/Labs/Meds Meds: Medications Discontinued Medications Generic Name Dose Route Start Last Admin Trade Name Elder PRSarah Reason Stop Dose Admin Dexamethasone 10 mg 05/12/18 19:09 05/12/18 19:18 Dexamethasone IM 05/12/18 19:10 10 mg ONETIME ONE Administration Tramadol HCl 50 mg 05/12/18 19:08 05/12/18 19:19 Ultram PO 05/12/18 19:09 50 mg ONETIME ONE Administration - Re-Assessments/Exams Free Text/Narrative Re-Assessment/Exam: 05/12/18 19:18 Patient presents to the ED for the evaluation of right-sided lower back pain. This is suspicious for discogenic back pain with right-sided sciatica. I have ordered 10 mg IM dexamethasone and plan to send the patient home with a prednisone burst for further relief, and I have ordered 50 mg tramadol to see if this doesn't help with some of her pain today, I will send her home with tramadol if this provides good pain relief. I was questioning the thought of switching her from Flexeril to Norflex as a muscle relaxer as well. I will discuss this with the patient and see what she prefers. I recommended that she keep her appointment with Mirna Cedillo on May 30 and that they do further imaging or management of her back pain through Mirna Cedillo. The patient is agreeable to this plan. 05/12/18 19:52 Patient was reexamined at bedside, she states that she feels as if the sharp shooting pain has subsided pretty well. I did get her up and walk her and she states that the pain is more tolerable with ambulation. We will discharge her home with above prescriptions noted. Departure - Departure Time of Disposition: 19:53 Disposition: Home, Self-Care 01 Condition: Fair Clinical Impression: Lower back pain Qualifiers: Chronicity: acute Back pain laterality: right Sciatica presence: with sciatica Sciatica laterality: sciatica of right side Qualified Code(s): M54.41 - Lumbago with sciatica, right side - Discharge Information *PRESCRIPTION DRUG MONITORING PROGRAM REVIEWED*: No *COPY OF PRESCRIPTION DRUG MONITORING REPORT IN PATIENT TC: No Prescriptions: Orphenadrine [Norflex] 100 mg PO BID PRN #20 tab PRN Reason: Spasms predniSONE [Deltasone] 20 mg PO ASDIRECTED #15 tablet traMADol [Ultram] 50 mg PO Q6H PRN #28 tab PRN Reason: Pain Instructions: Back Pain, Adult, [id number] Referrals: Mirna Cedillo PA-C [Primary Care Provider] - Forms: ED Department Discharge Additional Instructions: You have been evaluated in the ED today for your right sided lower back pain. Your back pain is suspicious for discogenic back pain with right-sided sciatica. The best imaging for this would be MRI. You have been provided with a prescription for prednisone, please take 20 mg twice daily for 5 days, then only 20 mg once daily for 5 days. Please take the tramadol every 6 hours as needed for pain relief. Recommend that you start taking a stool softener if you are taking the tramadol on a regular basis. Tramadol does work well if you take 400 mg of ibuprofen when you take your dose of tramadol as they work well with each other. You may take the Norflex 1 tab twice a day for muscle spasms, this is to replace your Flexeril or cyclobenzaprine medication. Please stop taking the Flexeril (cyclobenzaprine). These medications have been electronically prescribed to the [place] pharmacy located in the [facility] grocery store. Please keep your appointment with Mirna Cedillo for May 30 for further imaging and management of your back pain. You may use ice/heat packs to the affected area if this provides pain relief. Please return to the ED if your symptoms change or worsen.
[2018-05-12] MEDS ORDERED: traMADol 50 MG Tab PO ONE (19:08)
[2018-05-12] MEDS ORDERED: Dexamethasone 10 MG/ML SDV IM ONE (19:09)
== END 2018-05-12 20:07 | disposition home or self-care (01) ==
LOC: JD.ED 18:39
DX: M54.41 Lumbago with sciatica, right side (principal); K21.9 Gastro-esophageal reflux disease without esophagitis; Z91.040 Latex allergy status; Z88.0 Allergy status to penicillin
CPT/HCPCS: 96372; 99283; A9270; J1100

== ENCOUNTER 2018-05-14 23:52 | Emergency (ER) | payer BC ==
--- NOTE | 2018-05-15 00:18 | EDM.PDOC ---
ED HPI GENERAL MEDICAL PROBLEM - General Chief Complaint: Back Pain or Injury Stated Complaint: BACK PAIN Time Seen by Provider: 05/15/18 00:18 Source of Information: Reports: Patient History Limitations: Reports: No Limitations - History of Present Illness INITIAL COMMENTS - FREE TEXT/NARRATIVE: 37-year-old female presents to the ED with her . Patient states that she' s been having low back pain with radiation posterior aspect of buttock in the distribution of the SI joint and then down the posterior aspect of her leg to her mid calf and then below this is a bit of a burning numbness sensation into her foot. It is in the L5 nerve root distribution. Patient states it seemed to start after having her back manipulated a few times by a local chiropractor. He can still void and defecate normally with no loss of bladder or bowel control. She was seen yesterday in the ED and placed on prednisone 20 mg twice a day for 5 days and tramadol for pain which isn't helping at all. Prior to this she was started on a course of Voltaren and Norflex. This treatment regimen seemed to help some but. He is here primarily for pain control. Pain is 10 out of 10. Onset: Gradual Onset Date: 05/04/18 Duration: Day(s):, Constant, Getting Worse Location: Reports: Back (Right low back pain rating down the right posterior lateral leg to the foot.), Lower Extremity, Right Quality: Reports: Ache, Burning, Throbbing (Sharp lancinating), Other Severity: Severe (10 out of 10) Improves with: Reports: Other (Certain positions such as lying prone seem to help a bit better than trying to lie flat.) Worsens with: Reports: Other (Cannot stand for more than 5 minutes due to severity of the pain.) Context: Denies: Activity, Exercise, Lifting, Sick Contact, Trauma, Other Associated Symptoms: Denies: Confusion, Chest Pain, Cough, cough w sputum, Fever /Chills, Headaches, Loss of Appetite, Malaise, Nausea/Vomiting, Rash, Seizure, Shortness of Breath, Syncope 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 (see below) (None.) Lower Back Pain Score (Numeric/FACES): 10 - Related Data Allergies Allergy/AdvReac Type Severity Reaction Status Date / Time latex Allergy Rash Verified 05/15/18 00:19 Penicillins Allergy Other Verified 05/15/18 00:19 Home Meds: Home Meds Ibuprofen [IJD: Ibuprofen] 600 mg PO Q6H PRN #30 tablet 08/24/16 [Rx] Diclofenac Sodium [Voltaren] 75 mg PO BID 05/12/18 [History] Orphenadrine [Norflex] 100 mg PO BID PRN #20 tab 05/12/18 [Rx] predniSONE [Deltasone] 20 mg PO ASDIRECTED #15 tablet 05/12/18 [Rx] traMADol [Ultram] 50 mg PO Q6H PRN #28 tab 05/12/18 [Rx] Diclofenac Sodium [Voltaren] 50 mg PO BID #24 tab.ec 05/15/18 [Rx] oxyCODONE HCl/Acetaminophen [Percocet 5-325 mg Tablet] 1 - 2 each PO Q4H PRN # 30 tablet 05/15/18 [Rx] predniSONE [Deltasone] 20 mg PO DAILY #5 tablet 05/15/18 [Rx] Past Medical History - Past Health History Medical/Surgical History: Denies Medical/Surgical History Gastrointestinal History: Reports: GERD Other Gastrointestinal History: Heartburn with [employer] History: Reports: - Infectious Disease History Infectious Disease History: Reports: Chicken Pox - Past Surgical History GI Surgical History: Reports: Cholecystectomy Social & Family History - Family History Family Medical History: Noncontributory - Caffeine Use Caffeine Use: Reports: Coffee, Tea - Living Situation & Occupation Living situation: Reports: , with Family Occupation: Employed ED ROS GENERAL - Review of Systems Review Of Systems: See Below Constitutional: Reports: Malaise, Fatigue, Decreased Appetite. Denies: Fever, Chills HEENT: Reports: No Symptoms Respiratory: Reports: No Symptoms Cardiovascular: Reports: No Symptoms Endocrine: Reports: Fatigue GI/Abdominal: Reports: No Symptoms : Reports: No Symptoms Musculoskeletal: Reports: Back Pain (Very low back pain right side in the distribution of L5-S1 rating down the posterior aspect of the buttock and down the leg to the foot.) Skin: Reports: No Symptoms. Denies: Rash Neurological: Reports: Numbness, Paresthesia (Into her right foot.), Tingling ( Right foot), Other (Her back pain with sciatica radiating down the posterior right) Psychiatric: Reports: No Symptoms ( leg) Hematologic/Lymphatic: Reports: No Symptoms Immunologic: Reports: No Symptoms ED EXAM,LOWER BACK PAIN/INJURY - Physical Exam Exam: See Below Exam Limited By: No Limitations General Appearance: Alert, WD/WN, Moderate Distress (An obvious severe pain.) Respiratory/Chest: No Respiratory Distress, Lungs Clear, Normal Breath Sounds, No Accessory Muscle Use Cardiovascular: Normal Peripheral Pulses, Regular Rate, Rhythm, No Edema, No Gallop, No Murmur, No Rub GI/Abdominal: Normal Bowel Sounds, Soft, Non-Tender, No Organomegaly, No Abnormal Bruit, No Mass, Pelvis Stable Back Exam: Normal Inspection, Other (Is mild tenderness over the L5-S1 facet joint on the right side. Severe pain throughout the right sacroiliac joint.) Extremities: Normal Inspection, Normal Range of Motion, Non-Tender, No Pedal Edema Neurological: CN II-XII Intact, Oriented x 3, Straight Leg Raise (L) (Mildly positive bowstring sign), Straight Leg Raise (R) (Positive on the right side at 35.). No: Normal Plantar Flexion, Normal Gait, Normal Reflexes, Babinski DTR - Lower Extremities: 1+: Ankle (R), Ankle (L), 2+: Knee (R), Knee (L) Psychiatric: Other Skin Exam: Warm (And a good deal of pain.), Dry, Intact, Normal Color, No Rash Course - Vital Signs Last Recorded V/S: Last Vital Signs Temp 36.5 C 05/15/18 00:17 Pulse 80 05/15/18 00:17 Resp 16 05/15/18 00:17 BP 142/52 H 05/15/18 00:17 Pulse Ox 100 05/15/18 00:17 - Orders/Labs/Meds Meds: Medications Discontinued Medications Generic Name Dose Route Start Last Admin Trade Name Freq PRN Reason Stop Dose Admin Acetaminophen 80 mg 05/15/18 01:44 Tylenol PO 05/15/18 01:45 ONETIME ONE Diphenhydramine HCl 25 mg 05/15/18 00:26 05/15/18 00:33 Benadryl IVPUSH 05/15/18 00:27 25 mg ONETIME ONE Administration Hydromorphone HCl 1 mg 05/15/18 00:26 05/15/18 00:36 Dilaudid IVPUSH 05/15/18 00:27 1 mg ONETIME ONE Administration Dextrose/Sodium Chloride 1,000 mls @ 500 mls/hr 05/15/18 00:30 05/15/18 00:36 Dextrose 5%-Normal Saline IV 500 mls/hr ASDIRECTED ILIR Administration Metoclopramide HCl 10 mg 05/15/18 00:26 05/15/18 00:35 Reglan IVPUSH 05/15/18 00:27 10 mg ONETIME ONE Administration - Radiology Interpretation Free Text/Narrative:: 37-year-old female presents to the ED with severe low back pain on the right side rating down the posterior aspect of her right buttock and lateral thigh to her foot compatible with a herniated disc. Pain is been gradually worsening over a period of 10 days. She is here primarily for pain management. She was seen through the ED yesterday and placed on prednisone 20 mg twice a day and tramadol which is not helping at all for the pain. Plan IV D5 normal saline at 250 mils per hour. We'll give her Dilaudid 1 mg IV with Reglan 10 mg IV and Benadryl 25 mg IV for acute pain relief. She will need an MRI of her lumbar spine and I'll try and have x-ray buttock that later this morning and call her with an appointment time. - Re-Assessments/Exams Free Text/Narrative Re-Assessment/Exam: 05/15/18 01:30: Patient was able to sleep for a period of time and upon awakening her she did identify that her pain was markedly improved probably 60- 70% better. She was able to lie flat on her back and sleep. I will therefore discharge her to home. Plan will be to get her an MRI either later today or tomorrow. I will send a booking slip to the x-ray department and have them call her later this morning for an appointment. Discharged her on a further 5 day course of prednisone. She is to complete the 20 mg twice a day course and then continue with 25 mg once daily every morning for another 5 days. Also Voltaren 50 mg twice a day for 12 days. MiraLAX powder 17 g once daily to prevent constipation from narcotics. Percocet tabs 5/325 mg one or 2 every 4-6 hours needed for pain relief. Discharged home in the care of her . Departure - Departure Time of Disposition: 01:46 Disposition: Home, Self-Care 01 Condition: Fair Clinical Impression: Lumbar back pain with radiculopathy affecting right lower extremity - Discharge Information *PRESCRIPTION DRUG MONITORING PROGRAM REVIEWED*: Not Applicable *COPY OF PRESCRIPTION DRUG MONITORING REPORT IN PATIENT TC: Not Applicable Prescriptions: Diclofenac Sodium [Voltaren] 50 mg PO BID #24 tab.ec oxyCODONE HCl/Acetaminophen [Percocet 5-325 mg Tablet] 1 - 2 each PO Q4H PRN # 30 tablet PRN Reason: pain relief. predniSONE [Deltasone] 20 mg PO DAILY #5 tablet Instructions: Back Pain, Adult Referrals: PCP,None [Primary Care Provider] - Forms: ED Department Discharge Additional Instructions: Evaluation in the emergency department this morning in regards to increasing severe pain low back and radiating down your right lower extremity. The history is compatible with a herniated disc at lumbar 5 I compressing the nerve that runs down the back of your leg. This is better known as sciatica. Treated with intravenous pain medication Dilaudid 1 mg with Reglan 7.5 mg and Benadryl 25 mg for pain relief. I will arrange for an MRI of your lumbar spine . I will have the x-ray department call you later this morning with an appointment time for this procedure. This will show us where the disc is bulging and whether or not it's compressing the nerve root severely that would demand immediate neurosurgical attention. In the meantime I have written a prescription for pain medication Percocet 5/325 mg dosages one or 2 tablets every 4-6 hours needed for pain relief. All pain medicines cause constipation and I would therefore advise you to take MiraLAX powder 17 g or 1 scoop every day while on pain medications to prevent constipation from occurring. You are given a prescription for prednisone yesterday 20 mg twice daily for 5 days I wish you to continue this. I have written is still another prescription for 5 more tablets that are to be taken once daily every morning after you finish the initial 10 tablets. Also prescription written for Voltaren 50 g twice daily to further help reduce pain and inflammation. I would suggest trying to find out if you can get no point with either Dr Rodolfo Crooks or Dr. Maria Del Carmen Vazquez over to [facility] hopefully sooner than May 30 for an appointment. I don't believe that she could wait this long with the severity of pain that you are having. Ideally if you could see them one or 2 days after your MRI has been completed to get the results and then a referral to neurosurgeon if so indicated. Otherwise you could try Dr. Glo Pierre here at the hospital. You could call later this morning. The phone number here is [phone] to arrange an appointment. Her office is on the third floor of the east side of the [facility].
[2018-05-15 00:19] VITALS: BP 142/52
[2018-05-15] MEDS ORDERED: diphenhydrAMINE 50 MG/ML SDV IVPUSH ONE (00:26)
[2018-05-15] MEDS ORDERED: HYDROmorphone 1 MG/ML Syringe IVPUSH ONE (00:26)
[2018-05-15] MEDS ORDERED: Metoclopramide 10 MG/2 ML SDV IVPUSH ONE (00:26)
[2018-05-15] MEDS ORDERED: Dextrose 5%-0.9% NaCl 1,000 ML IV SCH (00:30)
[2018-05-15] MEDS ORDERED: Acetaminophen 325 MG/10.15 ML ML PO ONE (01:44)
== END 2018-05-15 01:58 | disposition home or self-care (01) ==
LOC: JD.ED 23:52
DX: M54.16 Radiculopathy, lumbar region (principal); Z88.0 Allergy status to penicillin; Z91.040 Latex allergy status; Z79.899 Other long term (current) drug therapy; Z90.49 Acquired absence of other specified parts of digestive tract
CPT/HCPCS: 96361; 96374; 96375; 99283; J1170; J1200; J2765; J7042; 99284